=== PATIENT | male | born 1965 | race Caucasian/White ===

== ENCOUNTER 2022-03-13 20:26 | Emergency (ER) | payer MEDICAID, SELFPAY ==
--- NOTE | 2022-03-13 | ECG_ITS ---
Test Reason : CHEST PAIN Blood Pressure : / mmHG Vent. Rate : 053 BPM Atrial Rate : 053 BPM P-R Int : 130 ms QRS Dur : 080 ms QT Int : 412 ms P-R-T Axes : 083 085 071 degrees QTc Int : 386 ms Sinus bradycardia Otherwise normal ECG No previous ECGs available Referred By: Generic ED Physician Electronically Signed By:VANESSA CAPUTO MD
[2022-03-13 21:07] VITALS: BP 142/67; PULSE 55; RESP 18; TEMP 36.6; O2SAT 99; BMI 21.2
[2022-03-13 21:29] LABS: MANUAL DIFF FLAG NO
[2022-03-13 21:30] LABS: Basophils Absolute Auto 0.1 X10*3/uL (0.0-0.2); Basophils Percent Auto 0.7 % (0-2); Eosinophils Absolute Auto 0.2 X10*3/uL (0.0-0.4); Eosinophils Percent Auto 2.8 % (0-4); Hematocrit 38.6 % (42.0-52.0); Hemoglobin 13.3 g/dl (14.0-18.0); Imm Gran Abs Auto 0.01 X10*3/uL (0.00-0.03); Imm Gran Pct Auto 0.1 % (0.0-0.4); Lymphocytes Absolute Auto 2.2 X10*3/uL (1.2-4.9); Lymphocytes Percent Auto 32.7 % (20-40); Mean Corpuscular HGB Conc 34.5 g/dl (31.0-36.0); Mean Corpuscular Hemoglobin 32.6 pg (27.0-33.0); Mean Corpuscular Volume 94.6 fL (80.0-98.0); Mean Platelet Volume 9.3 fL (9.4-12.4); Monocytes Absolute Auto 0.6 X10*3/uL (0.1-1.2); Monocytes Percent Auto 8.2 % (2-11); Neutrophils Absolute Auto 3.8 x10*3/uL (2.0-8.3); Neutrophils Percent Auto 55.5 % (45-73); Platelet Count 279 X10*3/uL (160-400); Red Blood Count 4.08 X10*6/uL (4.60-5.80); Red Cell Distribution Width 12.4 % (11.0-16.0); White Blood Count 6.8 X10*3/uL (4.8-10.8)
[2022-03-13 21:44] LABS: Alanine Aminotransferase 21 U/L (0-40); Alkaline Phosphatase 72 U/L (39-117); Anion Gap 10 (12-20); Aspartate Amino Transferase 17 U/L (5-37); Bilirubin Total 0.7 mg/dL (0.0-1.0); Blood Urea Nitrogen 12 mg/dL (9-16); Calcium 9.3 mg/dL (8.4-10.2); Carbon Dioxide 27 mmol/L (22-29); Chloride 108 mmol/L (96-108); Estimated Glomerular Filt Rate > 60; Glucose Random 98 mg/dL (60-115); Potassium 4.7 mmol/L (3.3-5.1); Sodium 140 mmol/L (135-145); Total Protein 6.5 g/dL (6.5-8.0)
[2022-03-13 21:51] LABS: Troponin-I High Sensitivity < 3.5 ng/L (<3.5-35.0)
[2022-03-14 02:24] VITALS: BP 119/64; PULSE 53; RESP 16; TEMP 37.6; O2SAT 99
[2022-03-14 02:41] LABS: COVID-19 Test Negative (Negative); IDNOW Serial# 16C4AD1C; Influenza A Negative (Negative); Influenza B2 Negative (Negative)
--- NOTE | 2022-03-14 03:56 | ED_ITS ---
HPI - Chest Pain General Chief Complaint: Chest Pain Stated Complaint: chest pain x1 day Time Seen by Provider: 03/13/22 21:26 Source: patient Mode of arrival: ambulatory History of Present Illness HPI narrative: 56-year-old male who is an occasional smoker but otherwise has no significant past medical history presents with left-sided chest wall pain that started on while he was at work that he describes as sharp and worsening with deep inspiration and movement and has continued to worsen the more he works. Patient denies any associated fever, chills, shortness of breath, palpitations, GI or symptoms and denies any trauma. Related Data Previous Rx's Medication Instructions Recorded ketorolac 10 mg tablet 10 mg PO Q6H PRN 5 Days #20 tab 03/14/22 Allergies Allergy/AdvReac Type Severity Reaction Status Date / Time Unable to Assess Allergy Unverified 03/13/22 21:27 Review of Systems Review of Systems: Pertinent positives and negatives as stated in HPI 10 point review of systems is otherwise negative. [facility] Past Medical History Source: nursing notes reviewed Physical Exam Vital Signs: Vital Signs: Last Vital Signs Temp 99.6 F 03/14/22 02:24 Pulse 53 03/14/22 02:24 Resp 16 03/14/22 02:24 BP 119/64 03/14/22 02:24 Pulse Ox 99 03/14/22 02:24 BMI result Body Mass Index 21.2 VITAL SIGNS: Reviewed. GENERAL: Well developed, well nourished, in no acute distress. HEAD: Normocephalic/atraumatic EYES: PERRLA, EOMI EARS: Ext canals without abnormality OROPHARYNX: no oral lesions noted, posterior pharynx clear LUNGS: Normal breath sounds. No adventitious sounds or accessory muscle use. SpO2<99>; CHEST WALL: There is reproducible pain on palpation at the left sternal border without noted crepitus or deformity CARDIOVASCULAR: Regular rate and rhythm without noted murmurs ABDOMEN: Soft, non-tender, non-distended with bowel sounds. NEUROLOGIC: Alert and oriented x 4. Course Course Course Narrative: 56-year-old male with history and clinical presentation consistent with musculoskeletal, costochondritis type of phenotype and on review of all workup there is no evidence to suggest cardiopulmonary etiology. All results discussed with patient at bedside and he was reassured and provided with combination analgesics as well as a lidocaine patch. He is otherwise discharged home in stable condition. MDM - Chest Pain Lab Data Result diagrams: 03/13/22 21:22 03/13/22 21:22 Labs: Lab Results 03/13/22 03/13/22 03/13/22 Range/Units 21:22 21:22 21:22 WBC 6.8 (4.8-10.8) X10*3/uL RBC 4.08 L (4.60-5.80) X10*6/uL Hgb 13.3 L (14.0-18.0) g/dl Hct 38.6 L (42.0-52.0) % MCV 94.6 (80.0-98.0) fL MCH 32.6 (27.0-33.0) pg MCHC 34.5 (31.0-36.0) g/dl RDW 12.4 (11.0-16.0) % Plt Count 279 (160-400) X10*3/uL MPV 9.3 L (9.4-12.4) fL Immature Gran % (Auto) 0.1 (0.0-0.4) % Neut % (Auto) 55.5 (45-73) % Lymph % (Auto) 32.7 (20-40) % [place] % (Auto) 8.2 (2-11) % Eos % (Auto) 2.8 (0-4) % Baso % (Auto) 0.7 (0-2) % Lymph # (Auto) 2.2 (1.2-4.9) X10*3/uL [place] # (Auto) 0.6 (0.1-1.2) X10*3/uL Eos # (Auto) 0.2 (0.0-0.4) X10*3/uL Baso # (Auto) 0.1 (0.0-0.2) X10*3/uL Abs Immat Gran (auto) 0.01 (0.00-0.03) X10*3/uL Absolute Neuts (auto) 3.8 (2.0-8.3) x10*3/uL Absolute Nucleated RBC 0.000 (0.0-0.012) X10*3/uL Nucleated RBC % (auto) 0.0 (0.0-0.2) /100WBC Sodium 140 (135-145) mmol/L Potassium 4.7 (3.3-5.1) mmol/L Chloride 108 (96-108) mmol/L Carbon Dioxide 27 (22-29) mmol/L Anion Gap 10 L (12-20) BUN 12 (9-16) mg/dL Creatinine 1.18 (0.5-1.4) mg/dL Estim Creat Clear Calc 54.0 Estimated GFR > 60 Random Glucose 98 (60-115) mg/dL Calcium 9.3 (8.4-10.2) mg/dL Total Bilirubin 0.7 (0.0-1.0) mg/dL AST 17 (5-37) U/L ALT 21 (0-40) U/L Alkaline Phosphatase 72 (39-117) U/L Troponin I High Sens < 3.5 (<3.5-35.0) ng/L Total Protein 6.5 (6.5-8.0) g/dL Albumin 4.0 (3.5-5.0) g/dL COVID-19 (KEVIN) (Negative) COVID-19 Clin Com Influenza Type A (RONNY) (Negative) Influenza Type B (RONNY) (Negative) Influenza A & B Note 03/14/22 03/14/22 Range/Units 02:19 02:19 WBC (4.8-10.8) X10*3/uL RBC (4.60-5.80) X10*6/uL Hgb (14.0-18.0) g/dl Hct (42.0-52.0) % MCV (80.0-98.0) fL MCH (27.0-33.0) pg MCHC (31.0-36.0) g/dl RDW (11.0-16.0) % Plt Count (160-400) X10*3/uL MPV (9.4-12.4) fL Immature Gran % (Auto) (0.0-0.4) % Neut % (Auto) (45-73) % Lymph % (Auto) (20-40) % [place] % (Auto) (2-11) % Eos % (Auto) (0-4) % Baso % (Auto) (0-2) % Lymph # (Auto) (1.2-4.9) X10*3/uL [place] # (Auto) (0.1-1.2) X10*3/uL Eos # (Auto) (0.0-0.4) X10*3/uL Baso # (Auto) (0.0-0.2) X10*3/uL Abs Immat Gran (auto) (0.00-0.03) X10*3/uL Absolute Neuts (auto) (2.0-8.3) x10*3/uL Absolute Nucleated RBC (0.0-0.012) X10*3/uL Nucleated RBC % (auto) (0.0-0.2) /100WBC Sodium (135-145) mmol/L Potassium (3.3-5.1) mmol/L Chloride (96-108) mmol/L Carbon Dioxide (22-29) mmol/L Anion Gap (12-20) BUN (9-16) mg/dL Creatinine (0.5-1.4) mg/dL Estim Creat Clear Calc Estimated GFR Random Glucose (60-115) mg/dL Calcium (8.4-10.2) mg/dL Total Bilirubin (0.0-1.0) mg/dL AST (5-37) U/L ALT (0-40) U/L Alkaline Phosphatase (39-117) U/L Troponin I High Sens (<3.5-35.0) ng/L Total Protein (6.5-8.0) g/dL Albumin (3.5-5.0) g/dL COVID-19 (KEVIN) Negative (Negative) COVID-19 Clin Com See Note Influenza Type A (RONNY) Negative (Negative) Influenza Type B (RONNY) Negative (Negative) Influenza A & B Note See Note ECG Data ECG #1: Attestation: I personally reviewed and interpreted this ECG as follows: Prior ECG tracings: not available for review Interpretation: Sinus bradycardia, HR-53, no STEMI, NE/QRS/QTC is within normal limits. Discharge Plan Discharge Clinical Impression: Atypical chest pain, Acute costochondritis Patient Disposition: Home, Self-Care Instructions: Costochondritis (ED), Chest Wall Pain (ED) Additional Instructions: 1. Tylenol 1000 mg, orally, every 6 hours as needed for pain control. Do not exceed 4000 mg within 24 hours. 2. Lidocaine patch, apply to area of maximal tenderness as directed on the outside packaging. 3. Follow-up with your primary care provider in the next 2-3 days for re- evaluation further outpatient management. Return to the ER for worsening symptoms. Prescriptions: New ketorolac 10 mg tablet 10 mg PO Q6H PRN (Reason: pain) 5 Days Qty: 20 0RF Rx Instructions: Patient received Toradol in the emergency room. Stand Alone Forms: Work/School Release
[2022-03-14] MEDS: Lidocaine 4 % Patch ADH..PATCH 1 PATCH TRANSDERMA (04:15)
[2022-03-14] MEDS: Ketorolac Tromethamine 15 MG/ML VIAL IM (04:15)
[2022-03-14] MEDS: Acetaminophen 325 MG TABLET 975 MG PO (04:15)
== END 2022-03-14 04:30 | disposition home or self-care (01) ==
LOC: HO.ED 04-28 08:03
PROVIDERS: Emergency Provider Student in an Organized Health Care Education/Training Program
DX: M94.0 Chondrocostal junction syndrome [Tietze] (principal); Z20.822 Contact with and (suspected) exposure to COVID-19
CPT/HCPCS: 36415; 80053; 84484; 85025; 87502; 87635; 93005; 96372; 99283; 99284; J1885

== ENCOUNTER 2023-09-16 13:07 | Emergency (ER) | payer SELFPAY ==
--- NOTE | ~2023-09-16 | XR_ITS ---
EXAMINATION: XR CHEST CLINICAL INFORMATION: Chest pain. COMPARISON: None available. TECHNIQUE: PA view of the chest was obtained. FINDINGS: Normal appearance of the cardiomediastinal silhouette. No focal airspace opacities, pleural effusion or pneumothorax. No pulmonary edema. No acute osseous findings. Visualized upper abdomen is within normal limits. XR/XR chest 1V IMPRESSION: No acute cardiopulmonary findings.
--- NOTE | 2023-09-16 13:09 | ECG_ITS ---
Test Reason : CHEST PAIN Blood Pressure : / mmHG Vent. Rate : 072 BPM Atrial Rate : 072 BPM P-R Int : 124 ms QRS Dur : 082 ms QT Int : 366 ms P-R-T Axes : 082 078 061 degrees QTc Int : 400 ms Normal sinus rhythm RSR' or QR pattern in V1 suggests right ventricular conduction delay Nonspecific T wave abnormality Abnormal ECG When compared with ECG of 13-MAR-2022 21:16, No significant change was found Heart rate has increased Referred By: Venice Araujo Electronically Signed By:ANDRES POSEY MD
--- NOTE | 2023-09-16 13:31 | ED.GENADULT ---
HPI - General Adult General Chief complaint: Chest Pain Stated complaint: Chest Pain X 2 Days Time Seen by Provider: 09/16/23 22:56 Source: patient Mode of arrival: ambulatory Limitations: no limitations History of Present Illness HPI narrative: 58-year-old male who presents emergency department for evaluation of chest pain x2 days. Patient states the pain came on gradually. He points to his sternum when asked to localize the pain. He describes the pain is a needle like pinching pain which is intermittent but will last for hours. He states that the pain is worse with movement this is 1st episode of this type of pain. He denied fever, chills, sore throat, dyspnea on exertion, shortness of breath. He states he did have nausea but no vomiting. Related Data Previous Rx's Medication Instructions Recorded ketorolac 10 mg tablet 10 mg PO Q6H PRN pain 5 days #20 03/14/22 tabs oxycodone 5 mg tablet 5 mg PO Q6H PRN pain #14 tabs 09/16/23 Allergies Allergy/AdvReac Type Severity Reaction Status Date / Time Unable to Assess Allergy Unverified 03/13/22 21:27 Review of Systems Review of Systems: Yes all other systems are reviewed and are negative [facility] Past Medical History [facility] Narrative: Past medical history: Patient donated 1 kidney to his . Social history: He occasionally smokes cigarettes. He denies alcohol use. He smokes marijuana daily. Social History Social History Advance Directives: No Advance Directives Information Provided: No Physical Exam ED Vital Signs: Vital Signs - 24 hr 09/16/23 14:00 09/16/23 21:19 Temperature 98.2 F 98.7 F Pulse Rate 61 52 Respiratory Rate 17 16 Blood Pressure 122/60 146/52 H Pulse Oximetry 97 100 Oxygen Delivery Method Room Air Room Air BMI result Body Mass Index 22.1 Vital signs were normal Exam General: Awake, alert in no distress Head: Normocephalic, atraumatic EENT: PERRL, Lids normal, sclera normal, conjunctiva normal, nose normal , ears normal, throat without erythema or exudates Neck: Supple, no adenopathy, no trachea midline or C-spine tenderness Lung: breath sounds symmetric, no wheezing, rales or rhonchi Chest: symmetric movement, tender sternum and left costochondral joint area Heart: regular rate and rhythm, normal S1, S2 no murmurs or rubs Abdomen: soft, non-tender, nondistended, normal bowel sounds Back: no vertebral tenderness, no CVAT Extremities: no deformities, moves all extremities symmetrically Skin: no rashes, no lesion, normal color and warmth Neuro: Awake, alert, oriented, normal speech, cranial nerves intact, moves all extremities symmetrically Psych: Pleasant, cooperative Course Course Course Narrative: This is an RME: Additional HPI, ROS, PE not included below will be deferred to primary provider. 58-year-old male presents with left-sided chest pain with associated shortness of breath. This has been going on for 2 days. patient denies fevers, chills nausea vomiting, headache, vision changes. No significant cardiac history per patient. Plan a Medical Decision Making Medical Decision Making [facility] Narrative: 58-year-old male who presents emergency department for evaluation of 2 days of sternal and left chest wall tenderness, pain is been intermittent, worse with movement. Physical examination did reveal tenderness palpation of his sternum and left costochondral joints otherwise was unremarkable. Patient's laboratory evaluation interpreted by me as follows: CBC was normal, CMP was normal. Patient's 1st troponin was below detectable limits repeat troponin was below detectable limits. Patient presentation is consistent is more consistent with chest wall pain/costochondritis then coronary artery disease. Patient has 1 kidney, he is advised to avoid NSAIDs. His pain was treated with Tylenol and oxycodone He was given printed and verbal instructions and discharged home Differential Diagnosis Differential Diagnoses: The differential diagnosis associated with the presentation includes Differential diagnosis includes was not limited to myocardial infarction, myocardial ischemia, musculoskeletal pain, costochondritis, pneumonia Admission/Observation Consideration of admission/observation: Escalation of care including admission/observation considered Lab Data [facility] Lab Attestation statement: I reviewed the patient's lab results. See [facility] for my interpretation 09/16/23 13:36 09/16/23 13:36 Labs: Lab Results 09/16/23 09/16/23 Range/Units 13:36 21:25 WBC 8.2 (4.8-10.8) X10*3/uL RBC 4.11 L (4.60-5.80) X10*6/uL Hgb 13.6 L (14.0-18.0) g/dl Hct 38.4 L (42.0-52.0) % MCV 93.4 (80.0-98.0) fL MCH 33.1 H (27.0-33.0) pg MCHC 35.4 (31.0-36.0) g/dl RDW 12.1 (11.0-16.0) % Plt Count 273 (160-400) X10*3/uL MPV 9.5 (9.4-12.4) fL Immature Gran % (Auto) 0.2 (0.0-0.4) % Neut % (Auto) 56.9 (45-73) % Lymph % (Auto) 33.8 (20-40) % [place] % (Auto) 6.9 (2-11) % Eos % (Auto) 1.5 (0-4) % Baso % (Auto) 0.7 (0-2) % Lymph # (Auto) 2.8 (1.2-4.9) X10*3/uL [place] # (Auto) 0.6 (0.1-1.2) X10*3/uL Eos # (Auto) 0.1 (0.0-0.4) X10*3/uL Baso # (Auto) 0.1 (0.0-0.2) X10*3/uL Abs Immat Gran (auto) 0.02 (0.00-0.03) X10*3/uL Absolute Neuts (auto) 4.6 (2.0-8.3) x10*3/uL Absolute Nucleated RBC 0.000 (0.0-0.012) X10*3/uL Nucleated RBC % (auto) 0.0 (0.0-0.2) /100WBC PT 11.9 (11.1-13.3) SEC INR 1.0 (0.9-1.1) Sodium 139 (135-145) mmol/L Potassium 3.6 D (3.3-5.1) mmol/L Chloride 108 (96-108) mmol/L Carbon Dioxide 26 (22-29) mmol/L Anion Gap 9 L (12-20) BUN 10 (9-16) mg/dL Creatinine 1.03 (0.5-1.4) mg/dL Estim Creat Clear Calc TNP Estimated GFR > 60 Random Glucose 94 (60-115) mg/dL Calcium 8.8 (8.4-10.2) mg/dL Magnesium 1.9 (1.6-2.6) mg/dL Total Bilirubin 0.7 (0.0-1.0) mg/dL AST 16 (5-37) U/L ALT 13 (0-40) U/L Alkaline Phosphatase 81 (39-117) U/L Troponin I High Sens < 2.7 < 2.7 (<3.5-35.0) ng/L B-Natriuretic Peptide 29 (<100) pg/mL Total Protein 6.8 (6.5-8.0) g/dL Albumin 4.1 (3.5-5.0) g/dL Independent Interpretation I performed an independent interpretation of an: Plain X-Ray Interpretation: My interpretation patient's one-view chest x-ray is as follows: No acute disease My interpretation of patient's 12 EKG done at 13:21 hours is as follows: Normal sinus rhythm with a rate of 72, normal RI interval, QRS duration and QTC interval, no ST segment elevation, no ST segment depression, peaked T-waves V3 through V5, no PACs, no PVCs. Compared to EKG dated 03/13/2022 there are no acute changes, the T-waves repeat down the previous EKG is well. Radiology Impression Discussion of test interpretation with radiology: I have reviewed the radiologist's reading. Radiologist Impression: XR chest 1V IMPRESSION: No acute cardiopulmonary findings. Dictated By: Lory Bone Chronic Conditions Patient?s care impacted by: Other (One kidney only secondary to donation) Discharge Plan Discharge Clinical Impression: Acute chest wall pain Patient Disposition: Home, Self-Care Instructions: Chest Wall Pain (ED) Additional Instructions: Your blood work was normal Your EKG was unremarkable and unchanged from the previous you had Your chest x-ray was normal pain At this time, I do not think that your chest pain is coming from your heart or your lungs and is related to inflammation of the muscles and joints of your chest. Since you only have 1 kidney I do not want you to take any anti-inflammatory medications such as ibuprofen, naproxen, Advil, Motrin, Aleve Take Tylenol (acetaminophen) 500 mg pills, 2 pills every 6 hours as needed for pain. For pain not relieved by Tylenol take oxycodone 5 mg pills, 1 pill every 4 hours as needed for pain. Do not drive or work while taking this medication since they can cause sleepiness. Oxycodone is a narcotic medication that can be addicting. If you are concerned about addiction you can ask the pharmacist for less pills or do not get this prescription filled. Follow-up with your doctor in 2 days. Please return to the emergency department if your symptoms get worse or if you develop any symptoms that are concerning to you. Prescriptions: New oxycodone 5 mg tablet 5 mg PO Q6H PRN (Reason: pain) Qty: 14 0RF Rx Instructions: Patient may request partial refill; Partial Fill upon patient request. No Action ketorolac 10 mg tablet 10 mg PO Q6H PRN (Reason: pain) 5 Days Qty: 20 0RF Rx Instructions: Patient received Toradol in the emergency room. Stand Alone Forms: Work/School Release Interventions: ED Discharge Assessment Last Done: 09/16/23 23:30 Discharge Date/Time: 09/16/23 23:31
[2023-09-16 13:39] LABS: MANUAL DIFF FLAG NO
[2023-09-16 13:41] LABS: Basophils Absolute Auto 0.1 X10*3/uL (0.0-0.2); Basophils Percent Auto 0.7 % (0-2); Eosinophils Absolute Auto 0.1 X10*3/uL (0.0-0.4); Eosinophils Percent Auto 1.5 % (0-4); Hematocrit 38.4 % (42.0-52.0); Hemoglobin 13.6 g/dl (14.0-18.0); Imm Gran Abs Auto 0.02 X10*3/uL (0.00-0.03); Imm Gran Pct Auto 0.2 % (0.0-0.4); Lymphocytes Absolute Auto 2.8 X10*3/uL (1.2-4.9); Lymphocytes Percent Auto 33.8 % (20-40); Mean Corpuscular HGB Conc 35.4 g/dl (31.0-36.0); Mean Corpuscular Hemoglobin 33.1 pg (27.0-33.0); Mean Corpuscular Volume 93.4 fL (80.0-98.0); Mean Platelet Volume 9.5 fL (9.4-12.4); Monocytes Absolute Auto 0.6 X10*3/uL (0.1-1.2); Monocytes Percent Auto 6.9 % (2-11); Neutrophils Absolute Auto 4.6 x10*3/uL (2.0-8.3); Neutrophils Percent Auto 56.9 % (45-73); Platelet Count 273 X10*3/uL (160-400); Red Blood Count 4.11 X10*6/uL (4.60-5.80); Red Cell Distribution Width 12.1 % (11.0-16.0); White Blood Count 8.2 X10*3/uL (4.8-10.8)
[2023-09-16 13:46] LABS: Prothrombin Time 11.9 SEC (11.1-13.3)
[2023-09-16 13:56] LABS: Alanine Aminotransferase 13 U/L (0-40); Albumin Level 4.1 g/dL (3.5-5.0); Alkaline Phosphatase 81 U/L (39-117); Anion Gap 9 (12-20); Aspartate Amino Transferase 16 U/L (5-37); Bilirubin Total 0.7 mg/dL (0.0-1.0); Blood Urea Nitrogen 10 mg/dL (9-16); Calcium 8.8 mg/dL (8.4-10.2); Carbon Dioxide 26 mmol/L (22-29); Chloride 108 mmol/L (96-108); Estimated Glomerular Filt Rate > 60; Glucose Random 94 mg/dL (60-115); Magnesium 1.9 mg/dL (1.6-2.6); Potassium 3.6 mmol/L (3.3-5.1); Sodium 139 mmol/L (135-145); Total Protein 6.8 g/dL (6.5-8.0)
[2023-09-16 14:00] VITALS: BP 122/60; PULSE 61; RESP 17; TEMP 36.8; O2SAT 97; BMI 22.1
[2023-09-16 14:02] LABS: B Type Natriuretic Peptide 29 pg/mL (<100)
[2023-09-16 14:18] LABS: Troponin-I High Sensitivity < 2.7 ng/L (<3.5-35.0)
[2023-09-16 21:19] VITALS: BP 146/52; PULSE 52; RESP 16; TEMP 37.1; O2SAT 100
[2023-09-16 22:04] LABS: Troponin-I High Sensitivity < 2.7 ng/L (<3.5-35.0)
== END 2023-09-16 23:31 | disposition home or self-care (01) ==
PROVIDERS: Physician Assistant; Emergency Provider Emergency Medicine Emergency Medical Services; PCP Internal Medicine
DX: R07.89 Other chest pain (principal); R06.02 Shortness of breath; Z79.899 Other long term (current) drug therapy
CPT/HCPCS: 36415; 71045; 80053; 83735; 83880; 84484; 85025; 85610; 93005; 99283

== ENCOUNTER 2023-10-19 09:15 | Emergency (ER) | payer OTHER, SELFPAY ==
--- NOTE | ~2023-10-19 | XR_ITS ---
EXAMINATION: XR CHEST CLINICAL INFORMATION: Chest pain. COMPARISON: 09/16/2023. TECHNIQUE: Frontal view of the chest was obtained. FINDINGS: No significant abnormality is noted involving the heart, lungs, mediastinum, bony thorax or soft tissues. XR/XR chest 1V IMPRESSION: Unremarkable examination.
--- NOTE | 2023-10-19 09:17 | ECG_ITS ---
Test Reason : cp Blood Pressure : / mmHG Vent. Rate : 079 BPM Atrial Rate : 079 BPM P-R Int : 122 ms QRS Dur : 080 ms QT Int : 364 ms P-R-T Axes : 081 083 062 degrees QTc Int : 417 ms Normal sinus rhythm Right atrial enlargement Borderline ECG When compared with ECG of 16-SEP-2023 13:21, No significant change was found Referred By: Generic ED Physician Electronically Signed By:VANESSA CAPUTO MD
[2023-10-19 09:37] VITALS: BP 124/62; PULSE 80; RESP 17; TEMP 36.9; O2SAT 97; BMI 21.3
[2023-10-19 10:15] LABS: MANUAL DIFF FLAG NO
[2023-10-19 10:17] LABS: Basophils Percent Auto 0.5 % (0-2); Eosinophils Percent Auto 0.5 % (0-4); Hematocrit 43.1 % (42.0-52.0); Imm Gran Abs Auto 0.01 X10*3/uL (0.00-0.03); Imm Gran Pct Auto 0.1 % (0.0-0.4); Lymphocytes Absolute Auto 1.5 X10*3/uL (1.2-4.9); Lymphocytes Percent Auto 19.8 % (20-40); Mean Corpuscular HGB Conc 34.8 g/dl (31.0-36.0); Mean Corpuscular Volume 94.9 fL (80.0-98.0); Mean Platelet Volume 9.3 fL (9.4-12.4); Monocytes Absolute Auto 0.5 X10*3/uL (0.1-1.2); Monocytes Percent Auto 5.8 % (2-11); Neutrophils Absolute Auto 5.7 x10*3/uL (2.0-8.3); Neutrophils Percent Auto 73.3 % (45-73); Platelet Count 287 X10*3/uL (160-400); Red Blood Count 4.54 X10*6/uL (4.60-5.80); Red Cell Distribution Width 12.3 % (11.0-16.0); White Blood Count 7.7 X10*3/uL (4.8-10.8)
[2023-10-19 10:33] LABS: Anion Gap 12 (12-20); Blood Urea Nitrogen 12 mg/dL (9-16); Calcium 9.8 mg/dL (8.4-10.2); Carbon Dioxide 28 mmol/L (22-29); Chloride 106 mmol/L (96-108); Creatinine Clr Calc Pharmacy 51.3; Estimated Glomerular Filt Rate > 60; Glucose Random 184 mg/dL (60-115); Potassium 4.1 mmol/L (3.3-5.1); Sodium 142 mmol/L (135-145)
[2023-10-19 10:43] LABS: Troponin-I High Sensitivity < 2.7 ng/L (<3.5-35.0)
--- NOTE | 2023-10-19 11:27 | ED_ITS ---
HPI - Chest Pain General Chief Complaint: Chest Pain Stated Complaint: chest pain Time Seen by Provider: 10/19/23 11:21 Source: patient Mode of arrival: ambulatory Limitations: no limitations History of Present Illness HPI narrative: patient with chest pain for weeks on and off with exertion. He has had this problem in the past and was told it was not his heart. complaint: chest pain Related Data Previous Rx's Medication Instructions Recorded ketorolac 10 mg tablet 10 mg PO Q6H PRN pain 5 days #20 03/14/22 tabs oxycodone 5 mg tablet 5 mg PO Q6H PRN pain #14 tabs 09/16/23 Allergies Allergy/AdvReac Type Severity Reaction Status Date / Time No Known Allergies Allergy Verified 10/19/23 09:37 Review of Systems 2 Review of Systems: Yes all other systems are reviewed and are negative Neurologic: Denies Sensory deficit (Neuro) [facility] Social History Social History Advance Directives: No Advance Directives Information Provided: No Physical Exam 2 Vital Signs: Vital Signs: Last Vital Signs Temp 98.6 F 10/19/23 11:57 Pulse 56 10/19/23 11:57 Resp 13 10/19/23 11:57 BP 128/65 10/19/23 11:57 Pulse Ox 99 10/19/23 11:57 O2 Del Method Room Air 10/19/23 11:57 BMI result Body Mass Index 21.3 Const: General: healthy appearing Nutritional Appearance: thin O rientation/consciousness: oriented to person and patient oriented x3 L imitations: no limitations HEENT: Head: Yes normal to inspection Ears: external ears normal General nose exam: Normal external nose present Mouth: Normal oral and palatal mucosa present and oropharynx normal Throat: Yes posterior oropharynx normal Eyes: General: appearance normal, both eyes and all related structures Neck: Other: supple Neck: Yes normal visual inspection Chest: Other: reproducible chest pain on palpation Chest palpation & inspection: normal inspection of the chest Resp: Auscultation: clear to auscultation bilaterally Cardio: Jugular venous distension: no JVD Rate: regular rate Rhythm: r egular rhythm Heart sounds: S1 normal heart sound present and S2 normal heart sound present GI: Inspection: Yes normal to inspection Palpation (GI): Soft to palpation, nontender and No hepatosplenomegaly present Auscultation: normal bowel sounds : General: Yes no CVA tenderness Back/Spine/Pelvis: Back: no CVA tenderness Skin: General skin exam: no rashes or lesions noted Neuro: General: oriented to person and patient oriented x3 Cranial nerves: Yes CN's II-XII intact bilaterally Motor exam (neuro): 5/5 motor strength present throughout Sensory Exam: No Sensory deficit (Neuro) Extrem: General: Yes normal to inspection Psych: Appearance: grossly normal Course Reevaluation(s) Reevaluation #1: Patient with reporducible chest pain, hyperacute T which are old on EKG, negative troponin Time: 13:15 Medical Decision Making Differential Diagnosis Differential Diagnoses: The differential diagnosis associated with the presentation includes (VT, cardiac ischemia, pneumonia, costrochondritis) Admission/Observation Consideration of admission/observation: Escalation of care including admission/observation considered (upon arrival patient was considered for admission) Lab Data 10/19/23 10:12 10/19/23 10:12 Labs: Lab Results 10/19/23 10/19/23 Range/Units 10:12 12:19 WBC 7.7 (4.8-10.8) X10*3/uL RBC 4.54 L (4.60-5.80) X10*6/uL Hgb 15.0 (14.0-18.0) g/dl Hct 43.1 (42.0-52.0) % MCV 94.9 (80.0-98.0) fL MCH 33.0 (27.0-33.0) pg MCHC 34.8 (31.0-36.0) g/dl RDW 12.3 (11.0-16.0) % Plt Count 287 (160-400) X10*3/uL MPV 9.3 L (9.4-12.4) fL Immature Gran % (Auto) 0.1 (0.0-0.4) % Neut % (Auto) 73.3 H (45-73) % Lymph % (Auto) 19.8 L (20-40) % [place] % (Auto) 5.8 (2-11) % Eos % (Auto) 0.5 (0-4) % Baso % (Auto) 0.5 (0-2) % Lymph # (Auto) 1.5 (1.2-4.9) X10*3/uL [place] # (Auto) 0.5 (0.1-1.2) X10*3/uL Eos # (Auto) 0.0 (0.0-0.4) X10*3/uL Baso # (Auto) 0.0 (0.0-0.2) X10*3/uL Abs Immat Gran (auto) 0.01 (0.00-0.03) X10*3/uL Absolute Neuts (auto) 5.7 (2.0-8.3) x10*3/uL Absolute Nucleated RBC 0.000 (0.0-0.012) X10*3/uL Nucleated RBC % (auto) 0.0 (0.0-0.2) /100WBC Sodium 142 (135-145) mmol/L Potassium 4.1 (3.3-5.1) mmol/L Chloride 106 (96-108) mmol/L Carbon Dioxide 28 (22-29) mmol/L Anion Gap 12 (12-20) BUN 12 (9-16) mg/dL Creatinine 1.22 (0.5-1.4) mg/dL Estim Creat Clear Calc 51.3 Estimated GFR > 60 Random Glucose 184 H (60-115) mg/dL Calcium 9.8 D (8.4-10.2) mg/dL Troponin I High Sens < 2.7 < 2.7 (<3.5-35.0) ng/L Independent Interpretation I performed an independent interpretation of an: EKG (sinus 80, peaked ts anteriorly old from prior) and Plain X-Ray (CXR no infiltrate) External Record Review External record reviewed: Outpatient record Tests considered The following testing was considered but not selected: Ct of chest considered but patient is not hypoxic and has had this pain in the past Prescription Management I considered prescription management with: Antibiotic (no pneumonia on xray) Social Determinants Patient?s care significantly limited by Social Determinants of Health including: Low income Discharge Plan Discharge Clinical Impression: Atypical chest pain, Costalchondritis Patient Disposition: Home, Self-Care Instructions: Chest Pain (ED), Costochondritis (ED), Noncardiac Chest Pain (ED) Prescriptions: No Action ketorolac 10 mg tablet 10 mg PO Q6H PRN (Reason: pain) 5 Days Qty: 20 0RF Rx Instructions: Patient received Toradol in the emergency room. oxycodone 5 mg tablet 5 mg PO Q6H PRN (Reason: pain) Qty: 14 0RF Rx Instructions: Patient may request partial refill; Partial Fill upon patient request. Referrals: Osvaldo Muhammad MD [Primary Care Provider] - 5 days
[2023-10-19 11:57] VITALS: BP 128/65; PULSE 56; RESP 13; TEMP 37; O2SAT 99
[2023-10-19 12:55] LABS: Troponin-I High Sensitivity < 2.7 ng/L (<3.5-35.0)
[2023-10-19] MEDS: Ketorolac Tromethamine 60 MG/2 ML VIAL IM (13:28)
== END 2023-10-19 13:51 | disposition home or self-care (01) ==
PROVIDERS: Emergency Provider Emergency Medicine; PCP Internal Medicine
DX: R07.89 Other chest pain (principal); M94.0 Chondrocostal junction syndrome [Tietze]; Z79.899 Other long term (current) drug therapy
CPT/HCPCS: 36415; 71045; 80048; 84484; 85025; 93005; 96372; 99284; J1885

== ENCOUNTER → 2023-10-19 09:17 | Outpatient (BNV) | payer OTHER, SELFPAY | PROVIDERS: Emergency Provider Emergency Medicine; PCP Internal Medicine; Visit Provider Internal Medicine Cardiovascular Disease | DX: R07.9 Chest pain, unspecified (principal) | CPT/HCPCS: 93010 ==

== ENCOUNTER 2025-02-22 21:39 | Emergency (ER) | payer OTHER, SELFPAY ==
[2025-02-22 21:42] VITALS: BP 136/77; PULSE 87; RESP 18; TEMP 36.8; O2SAT 99; BMI 23.2
[2025-02-22 22:00] LABS: MANUAL DIFF FLAG NO
[2025-02-22 22:01] LABS: Basophils Absolute Auto 0.1 X10*3/uL (0.0-0.2); Basophils Percent Auto 0.7 % (0-2); Eosinophils Absolute Auto 0.4 X10*3/uL (0.0-0.4); Hematocrit 37.3 % (42.0-52.0); Hemoglobin 13.1 g/dl (14.0-18.0); Imm Gran Pct Auto 0.9 % (0.0-0.4); Lymphocytes Absolute Auto 3.3 X10*3/uL (1.2-4.9); Lymphocytes Percent Auto 29.1 % (20-40); Mean Corpuscular HGB Conc 35.1 g/dl (31.0-36.0); Mean Corpuscular Hemoglobin 33.5 pg (27.0-33.0); Mean Corpuscular Volume 95.4 fL (80.0-98.0); Mean Platelet Volume 8.9 fL (9.4-12.4); Monocytes Absolute Auto 1.2 X10*3/uL (0.1-1.2); Monocytes Percent Auto 10.2 % (2-11); Neutrophils Absolute Auto 6.4 x10*3/uL (2.0-8.3); Neutrophils Percent Auto 56.1 % (45-73); Platelet Count 422 X10*3/uL (160-400); Red Blood Count 3.91 X10*6/uL (4.60-5.80); Red Cell Distribution Width 12.7 % (11.0-16.0); White Blood Count 11.5 X10*3/uL (4.8-10.8)
[2025-02-22 22:14] LABS: Alanine Aminotransferase 21 U/L (0-40); Albumin Level 3.9 g/dL (3.5-5.0); Alkaline Phosphatase 103 U/L (39-117); Anion Gap 13 (12-20); Aspartate Amino Transferase 18 U/L (5-37); Bilirubin Direct 0.1 mg/dL (0.0-0.5); Bilirubin Total 0.3 mg/dL (0.0-1.0); Blood Urea Nitrogen 16 mg/dL (9-16); Calcium 9.4 mg/dL (8.4-10.2); Carbon Dioxide 26 mmol/L (22-29); Chloride 104 mmol/L (96-108); Creatinine Clr Calc Pharmacy 57.9; Estimated Glomerular Filt Rate > 60; Glucose Random 100 mg/dL (60-115); Potassium 4.4 mmol/L (3.3-5.1); Sodium 139 mmol/L (135-145); Total Protein 7.2 g/dL (6.5-8.0)
[2025-02-22 23:44] LABS: Appearance Urine Clear; Color Urine Yellow; Glucose Urine UA Negative (Negative); Leukocyte Esterase Urine Small (1+) (Negative); Nitrite Urine Negative (Negative); Specific Gravity - Urine 1.025 (1.005-1.025); UMIC TRIGGER UACC YES; Urine Blood Negative (Negative); Urine Ketones Trace mg/dL (Negative); Urine Protein 30 (1+) mg/dL (Neg-Trace)
[2025-02-22 23:47] LABS: Bacteria Urine None Seen (None Seen); Hyaline Casts Urine 0-2 /LPF (0-2); RBC Urine 0-2 /HPF (0-2); UACC Culture Trigger YES; WBC Urine >50 /HPF (0-5)
--- NOTE | 2025-02-23 01:43 | ED.MALEGU ---
HPI - Male Genitourinary General Chief complaint: Urogenital-Male Stated complaint: problems urinating Time Seen by Provider: 02/23/25 01:42 Source: patient Mode of arrival: ambulatory Limitations: no limitations History of Present Illness ED Provider: Reina Bravo NP [facility] Narrative: Patient is a 59-year-old male who presents emergency department for evaluation. Over the past few days he has been experiencing painful urination, urinary frequency. He denies fevers, chills, nausea, vomiting, abdominal pain, back pain, hematuria, penile discharge or concern for sexually transmitted infections. Related Data Previous Rx's ?Medication ?Instructions ?Recorded ketorolac 10 mg tablet 10 mg PO Q6H PRN pain 5 days #20 03/14/22 tabs oxycodone 5 mg tablet 5 mg PO Q6H PRN pain #14 tabs 09/16/23 cefuroxime axetil 250 mg tablet 250 mg PO BID #14 tabs 02/23/25 phenazopyridine 100 mg tablet 100 mg PO TID PRN pain 6 doses #6 02/23/25 (Pyridium) tabs Allergies Allergy/AdvReac Type Severity Reaction Status Date / Time No Known Allergies Allergy Verified 02/22/25 21:44 Review of Systems Review of Systems: Yes all other systems are reviewed and are negative PMFSH Past Medical History Attestation statement: The following information was validated with the patient. Source: old records reviewed Physical Exam Vital Signs: Vital Signs: Last Vital Signs Temp 98.2 F 02/22/25 21:42 Pulse 87 02/22/25 21:42 Resp 18 02/22/25 21:42 BP 136/77 02/22/25 21:42 Pulse Ox 99 02/22/25 21:42 O2 Del Method Room Air 02/22/25 21:42 BMI result Body Mass Index 23.2 Appearance: Alert.?Oriented to person, place and time. No acute distress.?Normal affect. CVS: Heart sounds normal. Normal heart rate and rhythm.? Pulses normal.?? Respiratory: No respiratory distress.? Lung sounds clear to auscultation bilaterally?? Abdomen: Soft and non-tender. Normoactive bowel sounds. No pulsatile mass.??No CVA tenderness. Skin: Skin warm and dry.? Normal skin color.? Extremities: No lower extremity edema.? Neuro: Moves all extremities spontaneously. Sensation intact bilaterally. CN II-XII intact. No focal neuro deficits. Ambulates with normal steady gait. Medical Decision Making Medical Decision Making [facility] Narrative: Patient is a 59-year-old male with no reported past medical history presents emergency department for evaluation of dysuria and urinary frequency as per HPI. Overall he is well-appearing, nontoxic, afebrile. He has no CVA tenderness or abdominal tenderness on examination. CBC reveals a mild leukocytosis of 11,500, mild anemia that does not meet transfusion criteria. No electrolyte derangement no CARI. Unremarkable LFTs. Urinalysis with 1+ leukocyte esterase and >50 urine WBC concerning for urinary tract infection coupled with the symptoms. Given no associated back/flank pain, tenderness, nausea, vomiting, or abdominal pain likely to have upper urinary tract infection. No history of nephrolithiasis. Discharge home with course of antibiotics and Pyridium. Outpatient follow-up with primary care doctor. Reviewed worrisome signs and symptoms that would warrant re-evaluation emergency department. All questions answered. Stable for discharge Differential Diagnosis Differential Diagnoses: The differential diagnosis associated with the presentation includes (See narrative above) Admission/Observation Consideration of admission/observation: Escalation of care including admission/observation considered Lab Data [facility] Lab Attestation statement: I reviewed the patient's lab results. (See narrative above) 02/22/25 21:53 02/22/25 21:53 Labs: Lab Results 02/22/25 02/22/25 Range/Units 21:53 23:38 WBC 11.5 H (4.8-10.8) X10*3/uL RBC 3.91 L (4.60-5.80) X10*6/uL Hgb 13.1 L (14.0-18.0) g/dl Hct 37.3 L (42.0-52.0) % MCV 95.4 (80.0-98.0) fL MCH 33.5 H (27.0-33.0) pg MCHC 35.1 (31.0-36.0) g/dl RDW 12.7 (11.0-16.0) % Plt Count 422 H D (160-400) X10*3/uL MPV 8.9 L (9.4-12.4) fL Immature Gran % (Auto) 0.9 H (0.0-0.4) % Neut % (Auto) 56.1 (45-73) % Lymph % (Auto) 29.1 (20-40) % Karnes % (Auto) 10.2 (2-11) % Eos % (Auto) 3.0 (0-4) % Baso % (Auto) 0.7 (0-2) % Lymph # (Auto) 3.3 (1.2-4.9) X10*3/uL Karnes # (Auto) 1.2 (0.1-1.2) X10*3/uL Eos # (Auto) 0.4 (0.0-0.4) X10*3/uL Baso # (Auto) 0.1 (0.0-0.2) X10*3/uL Abs Immat Gran (auto) 0.10 H (0.00-0.03) X10*3/uL Absolute Neuts (auto) 6.4 (2.0-8.3) x10*3/uL Absolute Nucleated RBC 0.000 (0.0-0.012) X10*3/uL Nucleated RBC % (auto) 0.0 (0.0-0.2) /100WBC Sodium 139 (135-145) mmol/L Potassium 4.4 (3.3-5.1) mmol/L Chloride 104 (96-108) mmol/L Carbon Dioxide 26 (22-29) mmol/L Anion Gap 13 (12-20) BUN 16 (9-16) mg/dL Creatinine 1.12 (0.5-1.4) mg/dL Estim Creat Clear Calc 57.9 Estimated GFR > 60 Random Glucose 100 (60-115) mg/dL Calcium 9.4 (8.4-10.2) mg/dL Total Bilirubin 0.3 (0.0-1.0) mg/dL Direct Bilirubin 0.1 (0.0-0.5) mg/dL AST 18 (5-37) U/L ALT 21 (0-40) U/L Alkaline Phosphatase 103 (39-117) U/L Total Protein 7.2 (6.5-8.0) g/dL Albumin 3.9 (3.5-5.0) g/dL Urine Color Yellow Urine Appearance Clear Urine pH 6.0 (5.0-9.0) Ur Specific [place] 1.025 (1.005-1.025) Urine Protein 30 (1+) H (Neg-Trace) mg/dL Urine Glucose (UA) Negative (Negative) mg/dL Urine Ketones Trace (Negative) mg/dL Urine Blood Negative (Negative) Urine Nitrite Negative (Negative) Ur Leukocyte Esterase Small (1+) H (Negative) Urine RBC 0-2 (0-2) /HPF Urine WBC >50 H (0-5) /HPF Ur Squamous Epith Cells 6-10 (0-2) /HPF Urine Bacteria None Seen (None Seen) Hyaline Casts 0-2 (0-2) /LPF Prescription Management I considered prescription management with: Antibiotic Discharge Plan Discharge Clinical Impression: Urinary tract infection Patient Disposition: Home, Self-Care Instructions: Urinary Tract Infection in Men (ED) Additional Instructions: Complete the entire course of antibiotics as prescribed. Do not skip any doses or stopped taking early even if you begin to feel better. Pyridium may help with the burning sensation when you are urinating, please be advised that this will cause your varying to turn a bright orange color this is normal. Contact your primary care doctor to arrange for follow-up visit. Return with any new or worsening symptoms or concerns which includes but is not limited to fevers, chills, worsening pain urinating, inability to urinate, nausea, vomiting, abdominal pain, back pain. Prescriptions: New cefuroxime axetil 250 mg tablet 250 mg PO BID Qty: 14 0RF phenazopyridine [Pyridium] 100 mg tablet 100 mg PO TID PRN (Reason: pain) Qty: 6 0RF No Action ketorolac 10 mg tablet 10 mg PO Q6H PRN (Reason: pain) 5 Days Qty: 20 0RF Rx Instructions: Patient received Toradol in the emergency room. oxycodone 5 mg tablet 5 mg PO Q6H PRN (Reason: pain) Qty: 14 0RF Rx Instructions: Patient may request partial refill; Partial Fill upon patient request. Referrals: Osvaldo Muhammad MD [Primary Care Provider] - Print Language: Palauan
[2025-02-23 02:20] VITALS: BP 121/58; PULSE 66; RESP 18; TEMP 36.8; O2SAT 97
--- OUTSIDE RECORDS SUMMARY | 2025-02-23 02:23 | XMS_ITS | Clinical Summary ---
Author Organization [address] Address [address] [place] [address] Phone Care Team Providers Care Agricultural Technical Officer Name Role Phone Osvaldo Muhammad MD Primary Care Provider [phone] Allergies No known active allergies Medications omeprazole (PriLOSEC) [address] capsule Take 1 capsule (40 mg total) by mouth 1 (one) time each day. Do not crush or chew. 90 capsule 1 5 Active cholecalciferol (Vitamin D3) 50 mcg (2,000 unit) tablet Take 1 tablet (2,000 Units total) by mouth 1 (one) time each day. 90 tablet 3 5 Active terbinafine (LamISIL) 250 mg tablet Take 1 tablet (250 mg total) by mouth 1 (one) time each day. 84 each 5 Active triamcinolone (KENALOG) 0.1 % cream Apply to affected area 1-2 times daily as needed. 30 g 1 5 01/31/20 25 Active Problems Problem Noted Date Diagnosed Date Gastroesophageal reflux disease without esophagi tis 12/01/2024 Vitamin D deficiency disease 12/01/2024 Subcutaneous mass of abdominal wall 07/08/2022 Hyperlipidemia 05/28/2014 Solitary kidney, acquired 10/12/2013 Encounters Date Type Department Care Team Description 01/16/2025 9:55 AM EDT Lab Draw Station [address] History of use of hepatotoxic drug 12/14/2024 Telephone Adult Medicine [address] [phone] Becky Mathis RN 12/08/2024 Telephone Adult [address] [phone] Betsy Rome MA Results (Lab test results) 12/05/2024 Telephone [facility] ABSTRACTION Lee Bond [place] Results; Labs Only 12/01/2024 8:45 AM EST Lab Draw [address] Physical exam; Solitary kidney, acquired; Gastroesophageal reflux disease without esophagitis; Vitamin D deficiency disease; Mixed hyperlipidemia; Onychomycosis; Screening for diabetes mellitus (DM); Screening for prostate cancer 12/01/2024 8:00 AM EST Office Visit Adult [address] [phone] Osvaldo Muhammad MD Physical exam (Primary Dx); Solitary kidney, acquired; Gastroesophageal reflux disease without esophagitis; Vitamin D deficiency disease; Mixed hyperlipidemia; Onychomycosis; Eczema, unspecified type; Screening for prostate cancer; Screening for diabetes mellitus (DM) from Last 3 Months Immunizations Name Administration Dates Next Due H1N1 Inj Preservative Free 08/20/2015 Influenza trivalent, 0.5mL, preservative free (Fluarix; FluLaval; Fluzone) ages 6mo and older (Afluria) 3 years and older 07/19/2017,08/20/2014 Influenza trivalent, MDCK, 0 .5mL, preservative free (Flucelvax) 6mo and older 06/19/2024 Influenza trivalent, with pr eservative (Fluzone; Afluria) 6mo and older 06/19/2024 Influenza, Unspecified 08/03/2022 Pneumococcal conjugate 13 va lent (Prevnar 13, PCV13) 2mo and older 08/20/2015 Pneumococcal conjugate 20 va lent (Prevnar 20, PCV 20) 2mo and older 12/01/2024 Tdap Tetanus diptheria acell ular pertussis (Boostrix; Adacel) 7yo and older 02/28/2024,06/12/2013 Zoster recombinant (Shingrix) 19yo and older Surgical History Surgery Date Site/Laterality Comments COLONOSCOPY W/ POLYPECTOMY 2012 PROCEDURE: [place] COLSC FLX W/RMVL OF TUMOR POLYP LESION SNARE TQ; COMMENT: Sigmoid colon polyps x2: tubular adenoma x 1; hyperplastic x 1. 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; COMMENT: Sigmoid colon polyps x2 at colonoscopy 2013: Gastroesophageal reflux dise ase without esophagitis 12/01/2024 Solitary kidney, acquired Family History Medical History Relation Name Comments Diabetes Brother 1 Coronary artery disease Mother Diabetes Mother Blindness Neg Hx Cataracts Neg Hx Glaucoma Neg Hx Macular degeneration Neg Hx Other cancer Neg Hx Strabismus Neg Hx Relation Name Status Comments Brother 1 Alive Brother 2 (Age 65) dm, drug u se Brother 3 Alive Brother 4 Alive Brother 5 Alive Brother 6 Alive Brother 7 Alive Brother 8 Alive Father (Age 85) murdered Mother (Age 75) dm, cad, h tn Sister 1 Alive Sister 2 Alive Sister 3 Alive Social History Tobacco Use Types Packs/Day Years Used Date Smoking Tobacco: Some Days Cigarettes Smokeless Tobacco: Never Tobacco Cessation:Counseling Given: Not Answered Comments:Occasional smoker Alcohol Use Standard Drinks/Week Comments Yes 0.8 (1 standard drink = 0.6 oz p ure alcohol) Sex and Gender Information Value Date Recorded Sex Assigned at Not on file Legal Sex Male 8:29 AM EST Gender Identity Not on file Sexual Orientation Not on file Obstetrics History Last Filed Vital Signs Vital Sign Reading Time Taken Comments Blood Pressure 128/88 12/01/2024 7:59 AM EST Pulse 64 12/01/2024 7:59 AM EST Temperature 36.6 ??C (97.9 ??F) 12/01/2024 7:59 AM ES T Respiratory Rate - - Oxygen Saturation - - Inhaled Oxygen Concentration - - Weight 58.1 kg (128 lb) 12/01/2024 7:59 AM EST Height 162.6 cm (5' 4 ) 12/01/2024 7:59 AM EST Body Mass Index 21.97 12/01/2024 7:59 AM EST Plan of Treatment Upcoming Encounters Date Type Department Care Team (Late st Contact Info) Description 12/03/2025 10:30 AM EST Office Visit Adult Medicine [address] [place] [phone] Osvaldo Muhammad MD [address] [place] [address] Health Maintenance Due Date Last Done Comments Depression Screening 10/11/2022 HIV Screening 10/11/2022 Hepatitis C Screening 10/11/2022 Social Influencers of Health Screening 10/11/2022 COVID-19 Vaccine (3 - season) 2024 03/25/2021, 02/25/2021 Zoster Vaccines (2 of 2) 08/14/2024 06/19/2024 Colorectal Cancer Screening: Colonoscopy 01/25/2026 01/25/2023 Cholesterol Screening (Lipid Panel) 12/01/2029 12/01/2024, 04/11/2024, 04/11/2024 DTaP,Tdap,and Td Vaccines (3 - Td or Tdap) 02/27/2034 02/28/2024, 06/12/2013 RSV Immunization Adult Patients (1 - 1-dose 75+ series) 2038 Influenza Vaccine Completed 06/19/2024, , 08/03/2022, Additional history exists Pneumococcal Vaccine: 50+ Years Completed 12/01/2024, 08/20/2015 Pneumococcal Vaccine: Pediatrics (0 to 5 Years) and At-Risk Patients (6 to 64 Years) Completed 12/01/2024, 08/20/2015 HIB Vaccines Aged Out No longer eligi ble based on patient's age to complete this topic HPV Vaccines Aged Out No longer eligi ble based on patient's age to complete this topic Hepatitis A Vaccines Aged Out No long er eligible based on patient's age to complete this topic Hepatitis B Vaccines Aged Out No long er eligible based on patient's age to complete this topic IPV Vaccines Aged Out No longer eligi ble based on patient's age to complete this topic MMR Vaccines Aged Out No longer eligi ble based on patient's age to complete this topic Meningococcal ACWY Vaccine Aged Out N o longer eligible based on patient's age to complete this topic Meningococcal B Vaccine Aged Out No l onger eligible based on patient's age to complete this topic RSV Immunization Patients Under 20 months Aged Out No longer eligible based on patient's age to complete this topic Varicella Vaccines Aged Out No longer eligible based on patient's age to complete this topic Procedures Procedure Name Priority Date/Time Associated Diagnosis Comments HEPATIC FUNCTION PANEL Routine 10:28 AM EDT History of use of hepatotoxic drug LIPID PANEL WITH REFLEX TO DIRECT LDL Routine 12/01/2024 9:13 AM EST Physical exam Solitary kidney, acquired Gastroesophageal reflux disease without esophagitis Vitamin D deficiency disease Mixed hyperlipidemia Onychomycosis Screening for diabetes mellitus (DM) COMPREHENSIVE METABOLIC PANEL Routine 12/01/2024 9:13 AM EST Physical exam Solitary kidney, acquired Gastroesophageal reflux disease without esophagitis Vitamin D deficiency disease Mixed hyperlipidemia Onychomycosis Screening for diabetes mellitus (DM) PROSTATE SPECIFIC ANTIGEN SCREEN Routine 12/01/2024 9:13 AM EST Screening for prostate cancer VITAMIN B12 Routine 12/01/2024 9:13 AM EST Physical exam Solitary kidney, acquired Gastroesophageal reflux disease without esophagitis Vitamin D deficiency disease Mixed hyperlipidemia Onychomycosis Screening for diabetes mellitus (DM) HEMOGLOBIN A1C Routine 12/01/2024 9:13 AM EST Physical exam Solitary kidney, acquired Gastroesophageal reflux disease without esophagitis Vitamin D deficiency disease Mixed hyperlipidemia Onychomycosis Screening for diabetes mellitus (DM) HM COLONOSCOPY Routine 01/25/2023 from Last 3 Months or Most Recently Relevant to Health Maintenance Results * Hepatic function panel (01/16/2025 10:28 AM EDT) Total Protein 7.2 6.0 - 8.0 g/dL LAB CHEMISTRY METHOD 01/16/2025 1:55 PM EDT [facility] Albumin 3.9 3.2 - 5.0 g/dL LAB CHEMISTRY METHOD 01/16/2025 1:55 PM EDT [facility] Total Bilirubin 0.7 0.0 - 1.4 mg/dL LAB CHEMISTRY METHOD 01/16/2025 1:55 PM EDT [facility] Bilirubin, Direct 0.2 0.0 - 0.3 mg/dL LAB CHEMISTRY METHOD 01/16/2025 1:55 PM EDT [facility] Bilirubin, Indirect 0.5 0.0 - 1.1 mg/dL LAB CHEMISTRY METHOD 01/16/2025 1:55 PM EDT [facility] ALT (SGPT) 24 10 - 60 unit/L LAB CHEMISTRY METHOD 01/16/2025 1:55 PM EDT [facility] AST (SGOT) 15 10 - 42 unit/L LAB CHEMISTRY METHOD 01/16/2025 1:55 PM EDT [facility] Alkaline Phosphatase 95 42 - 121 unit/L LAB CHEMISTRY METHOD 01/16/2025 1:55 PM EDT [facility] Blood Venous blood specimen / Unknown Venipuncture / Unknown 01/16/2025 10:28 AM EDT 01/16/2025 10:28 AM EDT Osvaldo Muhammad MD LAB BLOOD ORDERABLES Final Result [facility] [address] [place] [address], * Prostate specific antigen screen (12/01/2024 9:13 AM EST) PSA 1.11 0.00 - 4.00 ng/mL LAB CHEMISTRY METHOD 12/01/2024 1:16 PM EST [facility] Blood Venous blood specimen / Unknown Venipuncture / Unknown 12/01/2024 9:13 AM EST 12/01/2024 9:13 AM EST Narrative [facility] - 12/01/2024 1:16 PM EST The Siemens Advia Centaur Chemiluminescent Immunoassay is used. Results obtained with different assay methods or kits cannot be used interchangeably. Results cannot be interpreted as absolute evidence of the presence or absence of malignant disease. Osvaldo Muhammad MD LAB BLOOD ORDERABLES Final Result [facility] [address] [place] [address], [place] [phone] * (ABNORMAL) Lipid panel with reflex to direct LDL (12/01/2024 9:13 AM EST) [facility] Cholesterol 181 0 - 200 mg/dL LAB CHEMISTRY METHOD 12/01/2024 1:48 PM EST [facility] Triglycerides 46 0 - 150 mg/dL LAB CHEMISTRY METHOD 12/01/2024 1:48 PM EST [facility] HDL 49 >=40 mg/dL LAB CHEMISTRY METHOD 12/01/2024 1:48 PM EST [facility] LDL Calculated 123(H) 0 - 100 mg/dL LAB CHEMISTRY METHOD 12/01/2024 1:48 PM EST [facility] VLDL Cholesterol Adolfo 9.2 mg/dL LAB CHEMISTRY METHOD 12/01/2024 1:48 PM EST [facility] Non HDL Chol. (LDL+VLDL) 132 <145 mg/dL LAB CHEMISTRY METHOD 12/01/2024 1:48 PM EST [facility] Chol/HDL Ratio 3.7 0.0 - 4.4 LAB CHEMISTRY METHOD 12/01/2024 1:48 PM [facility] Blood Venous blood specimen / Unknown Venipuncture / Unknown 12/01/2024 9:13 AM EST 12/01/2024 9:13 AM EST Osvaldo Muhammad MD LAB BLOOD ORDERABLES Final Result [facility] [address] [place] [address], [place] [phone] * Hemoglobin A1c (12/01/2024 9:13 AM EST) [facility] Hemoglobin A1C 5.4 <6.5 % LAB CHEMISTRY METHOD 12/01/2024 1:47 PM EST [facility] Mean Bld Glu Estim. 108 mg/dL LAB CHEMISTRY METHOD 12/01/2024 1:47 PM [facility] Blood Venous blood specimen / Unknown Venipuncture / Unknown 12/01/2024 9:13 AM EST 12/01/2024 9:13 AM EST Osvaldo Muhammad MD LAB BLOOD ORDERABLES Final Result [facility] [address] [place] [address], [place] [phone] * Vitamin B12 (12/01/2024 9:13 AM EST) [facility] Vitamin B-12 441 250 - 900 pcg/mL LAB CHEMISTRY METHOD 12/01/2024 1:48 PM EST [facility] Blood Venous blood specimen / Unknown Venipuncture / Unknown 12/01/2024 9:13 AM EST 12/01/2024 9:13 AM EST Osvaldo Muhammad MD LAB BLOOD ORDERABLES Final Result [facility] [address] [place] [address], [place] [phone] * Comprehensive metabolic panel (12/01/2024 9:13 AM EST) [facility] Sodium 138 133 - 145 mmol/L LAB CHEMISTRY METHOD 12/01/2024 1:48 PM [facility] Potassium 4.5 3.5 - 5.5 mmol/L LAB CHEMISTRY METHOD 12/01/2024 1:48 PM [facility] Chloride 107 96 - 110 mmol/L LAB CHEMISTRY METHOD 12/01/2024 1:48 PM [facility] CO2 26 21 - 32 mmol/L LAB CHEMISTRY METHOD 12/01/2024 1:48 PM [facility] Anion Gap 5 3 - 11 LAB CHEMISTRY METHOD 12/01/2024 1:48 PM [facility] Glucose 96 70 - 100 mg/dL LAB CHEMISTRY METHOD 12/01/2024 1:48 PM [facility] BUN 17 5 - 25 mg/dL LAB CHEMISTRY METHOD 12/01/2024 1:48 PM [facility] Creatinine 1.20 0.70 - 1.30 mg/dL LAB CHEMISTRY METHOD 12/01/2024 1:48 PM [facility] eGFR 69 >=60 mL/min/1. 73m2 LAB CHEMISTRY METHOD 12/01/2024 1:48 PM [facility] Comment:Calculation based on the??Chronic Kidney Disease Epidemiology Collaboration (CKD-EPI) equation refit??without adjustment for race. BUN/Creatinine Ratio 14.2 LAB CHEMISTRY METHOD 12/01/2024 1:48 PM [facility] Calcium 9.4 8.5 - 10.5 mg/dL LAB CHEMISTRY METHOD 12/01/2024 1:48 PM [facility] AST (SGOT) 13 10 - 42 unit/L LAB CHEMISTRY METHOD 12/01/2024 1:48 PM [facility] ALT (SGPT) 27 10 - 60 unit/L LAB CHEMISTRY METHOD 12/01/2024 1:48 PM [facility] Alkaline Phosphatase 92 42 - 121 unit/L LAB CHEMISTRY METHOD 12/01/2024 1:48 PM [facility] Total Protein 7.0 6.0 - 8.0 g/dL LAB CHEMISTRY METHOD 12/01/2024 1:48 PM [facility] Albumin 4.0 3.2 - 5.0 g/dL LAB CHEMISTRY METHOD 12/01/2024 1:48 PM [facility] Total Bilirubin 0.5 0.0 - 1.4 mg/dL LAB CHEMISTRY METHOD 12/01/2024 1:48 PM EST [facility] Blood Venous blood specimen / Unknown Venipuncture / Unknown 12/01/2024 9:13 AM EST 12/01/2024 9:13 AM EST Osvaldo Muhammad MD LAB BLOOD ORDERABLES Final Result [facility] [address] [place] [address], [place] [phone] * Colonoscopy (01/25/2023) HM Colonoscopy abstracted, no interpretation Anatomical Region Laterality Modality Other Historical Provider HEALTH MAINTENANCE Final Result from Last 3 Months or Most Recently Relevant to Health Maintenance Insurance [facility] Care Teams Agricultural Technical Officer Relationship Specialty Start Date End Date Osvaldo Muhammad MD [address] [place] [address] PCP - General Internal Medicine 04/07/22
[2025-02-23] MEDS: cefuroxime axetiL 250 MG TABLET PO (02:34)
[2025-02-23] MEDS: Phenazopyridine HCL 100 MG TABLET PO (02:34)
[2025-02-23 02:39] VITALS: BP 121/58; PULSE 66; RESP 18; TEMP 36.8; O2SAT 97
== END 2025-02-23 02:40 | disposition home or self-care (01) ==
PROVIDERS: Emergency Provider Internal Medicine; PCP Internal Medicine
DX: N39.0 Urinary tract infection, site not specified (principal); R30.0 Dysuria
CPT/HCPCS: 36415; 80048; 80076; 81001; 85025; 87086; 99283; 99284